=== PATIENT | female | born 1985 | race Caucasian/White ===

== ENCOUNTER 2017-01-21 12:37 | Inpatient (IN) ==
[2017-01-21] MEDS ORDERED: ZOFRAN IV PRN (22:27)
[2017-01-21] MEDS ORDERED: PEPCID PO ONE (22:27)
[2017-01-21] MEDS ORDERED: STADOL IV PRN ×3 (22:27)
[2017-01-21] MEDS ORDERED: PEPCID PO PRN (22:27)
[2017-01-21] MEDS ORDERED: AMBIEN PO PRN (22:27)
[2017-01-21] MEDS ORDERED: REGLAN PO ONE (22:27)
[2017-01-21] MEDS ORDERED: BRETHINE SUBQ PRN (22:27)
[2017-01-21] MEDS ORDERED: KEFZOL 1 GM/D5W 50 ML IV PRN (22:27)
[2017-01-21] MEDS ORDERED: TYLENOL PO PRN (22:27)
[2017-01-21] MEDS ORDERED: PEPCID IV PRN (22:27)
[2017-01-22] MEDS: LR 1,000 ML IV SCH ×2 (01:00→13:33)
[2017-01-22] MEDS ORDERED: CYTOTEC PO ONE (02:00)
[2017-01-22 02:19] LABS: URINE SOURCE VOIDED
[2017-01-22 02:19] LABS: MANUAL DIFF NEEDED? NO
[2017-01-22 02:32] LABS: BASO% 0.3 % (0.0-0.8); EOS# 0.15 X1000 (0.0-0.7); EOS% 1.4 % (0.0-10.0); HEMATOCRIT 34.7 % (37.0-47.0); HEMOGLOBIN 11.9 g/dL (12.0-16.0); IMM GRAN# 0.08 X1000 (0.0-0.04); IMM GRAN% 0.7 % (0.0-0.5); LYMPH% 15.4 % (20.5-51.1); MCH 30.7 PG (27-31); MCHC 34.3 g/dL (33-37); MCV 89.7 FL (81-99); MONO# 0.93 X1000 (0.11-0.59); MONO% 8.4 % (1.7-9.3); MPV 12.4 FL (7.4-10.4); NEUT% 73.8 % (42.2-75.2); PLT 203 X1000 (130-400); RBC 3.87 XMIL (4.2-5.4)
[2017-01-22 02:34] LABS: BILIRUBIN URINE NEGATIVE (NEGATIVE); BLOOD URINE 2+ (NEGATIVE); CLARITY CLEAR (CLEAR); COLOR YELLOW; LEUKOCYTES URINE 1+ (NEGATIVE); NITRITE URINE NEGATIVE (NEGATIVE); PH URINE 6.5; PROTEIN URINE TRACE mg/dL (NEGATIVE); SP GRAVITY URINE 1.025; UROBILINOGEN URINE NORMAL
[2017-01-22 02:36] LABS: UR AMPHETAMINES QUAL NONE DETECTED (NONE DETECT); UR BARBITUATES QUAL NONE DETECTED (NONE DETECT); UR BENZODIAZEPIN QUAL NONE DETECTED (NONE DETECT); UR CANNABINOIDS QUAL NONE DETECTED (NONE DETECT); UR COCAINE QUAL NONE DETECTED (NONE DETECT); UR MDMA QUAL NONE DETECTED (NONE DETECT); UR METHADONE QUAL NONE DETECTED (NONE DETECT); UR METHAMPHETAMINE QUAL NONE DETECTED (NONE DETECT); UR OPIATES QUAL NONE DETECTED (NONE DETECT); UR OXYCODONE QUAL NONE DETECTED (NONE DETECT); UR PCP QUAL NONE DETECTED (NONE DETECT); UR TCA QUAL NONE DETECTED (NONE DETECT)
[2017-01-22] MEDS ORDERED: PITOCIN 30 UNITS/LR 500 ML IV SCH (06:00)
[2017-01-22] MEDS ORDERED: XYLOCAINE-MPF 1% ONE (07:29)
[2017-01-22] MEDS ORDERED: PERCOCET-5 PO PRN ×2 (12:52→15:25)
[2017-01-22] MEDS ORDERED: MOTRIN PO PRN (12:52)
[2017-01-22] MEDS ORDERED: BOOSTRIX VACCINE IM ONE (12:52)
[2017-01-22] MEDS ORDERED: CYTOTEC PO PRN ×2 (12:52→15:25)
[2017-01-22] MEDS ORDERED: NORCO-10 PO PRN ×2 (12:52→15:25)
[2017-01-22] MEDS ORDERED: PERCOCET-10 PO PRN (12:52)
[2017-01-22] MEDS ORDERED: PERI MEDS (DERMOPLAST/NUPERCAINAL/TUCKS) MISC PRN ×2 (12:52→15:25)
[2017-01-22] MEDS ORDERED: BENADRYL PO PRN ×2 (12:52→15:25)
[2017-01-22] MEDS ORDERED: AMBIEN PO PRN ×2 (12:52→15:25)
[2017-01-22] MEDS ORDERED: NORCO-5 PO PRN ×2 (12:52→15:25)
[2017-01-22] MEDS ORDERED: PITOCIN 30 UNITS/LR 500 ML IV ONE ×2 (12:52→15:25)
[2017-01-22] MEDS ORDERED: M-M-R II VACCINE SUBQ ONE (12:52)
[2017-01-22] MEDS ORDERED: HYDROXYZINE IM PRN ×2 (12:52→15:25)
[2017-01-22] MEDS ORDERED: HYDROXYZINE PO PRN ×2 (12:52→15:25)
[2017-01-22] MEDS ORDERED: MINERAL OIL MISC PRN ×2 (12:52→15:25)
[2017-01-22] MEDS ORDERED: XYLOCAINE-MPF 1% INJ PRN ×2 (12:52→15:25)
[2017-01-22] MEDS ORDERED: BENADRYL IV PRN ×2 (12:52→15:25)
[2017-01-22] MEDS ORDERED: PITOCIN IM PRN ×2 (12:52→15:25)
[2017-01-22] MEDS ORDERED: PITOCIN 20 UNITS/LR 1,000 ML IV SCH ×2 (13:00→15:25)
--- NOTE | 2017-01-22 13:41 | OPERATIVE NOTE ---
PROCEDURE DATE: 01/22/2017 DELIVERY PHYSICIAN: Frederic Dial MD TYPE OF DELIVERY: Spontaneous controlled vaginal delivery. ANESTHESIA: None. FINDINGS: At 12:22, an 8 pound 4 ounce female infant was delivered in occiput anterior presentation. Apgars were 9 at 1 minute, 9 at 5 minutes. SUMMARY: Veronique Mix is a 31-year-old, 3, para 2-0-0-2, at 40-1/2 weeks gestation. Her blood type is A positive. Rubella immune. Hepatitis B surface antigen, HIV, and group B strep were negative. Her has been without complications. She was admitted last night for induction of labor. Cytotec was given. This morning she was 4 cm. She continued to progress through labor. At 6 cm, her water was broken and clear fluid was noted. She continued to progress to labor without signs of distress or dystocia. She became complete and began pushing. She rapidly crowned. At that point she was placed in dorsal lithotomy position. The perineum was prepped and draped in the usual fashion. A spontaneous controlled vaginal delivery occurred. Once the infant's head was delivered, the oropharynx was bulb suctioned. The shoulders and body delivered without complications. Afterwards the patient requested delayed clamping of cord. We did not clamp the cord, the pulsations had ceased. The cord was clamped and cut, at this time and the infant was handed to the nurses for further care and evaluation. Cord blood was obtained. Placenta was spontaneously delivered. It was intact. There was a small left labial laceration, which was infiltrated with Xylocaine and oversewn using Vicryl suture. Blood loss approximately 200 mL. There were no complications. Patient remained in the LDR recovering without difficulty.
[2017-01-22] MEDS: MOTRIN PO PRN (16:31)
[2017-01-22] MEDS: PERICOLACE PO SCH (19:30)
[2017-01-22] MEDS ORDERED: PERICOLACE PO SCH (21:00)
[2017-01-23] MEDS: MOTRIN PO PRN ×2 (01:02→11:14)
[2017-01-23] MEDS: PERICOLACE PO SCH ×2 (19:15→20:30)
[2017-01-23] MEDS: PERCOCET-10 PO PRN (20:30)
[2017-01-24 07:24] VITALS: BP 111/71
[2017-01-24] MEDS: MOTRIN PO PRN (08:21)
[2017-01-24] MEDS: PERCOCET-10 PO PRN (08:21)
== END 2017-01-24 11:40 | disposition home or self-care (01) | DRG 775 ==
LOC: P.LD 22:16 → P.WC 01-22 14:56
PROVIDERS: ADMIT Obstetrics & Gynecology; ATTEND Obstetrics & Gynecology
PROC: 10E0XZZ Delivery of Products of Conception, External Approach (ICD-10-PCS; principal; 2017-01-22)
PROC: 10907ZC Drainage of Amniotic Fluid, Therapeutic from Products of Conception, Via Natural or Artificial Opening (ICD-10-PCS; 2017-01-22)
PROC: 3E033VJ Introduction of Other Hormone into Peripheral Vein, Percutaneous Approach (ICD-10-PCS; 2017-01-22)
PROC: 0HQ9XZZ Repair Perineum Skin, External Approach (ICD-10-PCS; 2017-01-22)
DX: O48.0 Post-term pregnancy (principal); O70.0 First degree perineal laceration during delivery; Z37.0 Single live birth; Z3A.40 40 weeks gestation of pregnancy
CPT/HCPCS: 59025; 80305; 81003; 85025; 86592; J2590; J7120